=== PATIENT | female | born 1985 | race Two or more races ===

== ENCOUNTER 2021-09-05 19:06 | Emergency (ER) | payer SELFPAY ==
[~2021-09-05] VITALS: Ht 160 cm; Wt 70.0 kg
[2021-09-05] MEDS ORDERED: NEOM28OI TP (19:29)
--- NOTE | 2021-09-05 19:30 | PHYS DOC ---
General Adult EDM: Chief Complaint: DEPRESSION HPI: HPI: Patient is a 35 year old female who presents with here from [facility] which she is being treated for depression and she made a superficial cut on her left wrist. The monitor here to have it checked out. She states it just genao. She did a couple days ago. She does need a tetanus shot. Rates her pain a 3 out of 10. Denies numbness or tingling, focal weakness, SI, HI, hallucinations. (MINO LEES CHIEF I DISPATCHER) Review of Systems: Review of Systems: Constitutional: Denies fever or chills. [] Eyes: Denies change in visual acuity. [] HENT: Denies nasal congestion or sore throat. [] Respiratory: Denies cough or shortness of breath. [] Cardiovascular: Denies chest pain or edema. [] GI: Denies abdominal pain, nausea, vomiting, bloody stools or diarrhea. [] : Denies dysuria. [] Musculoskeletal: Denies back pain or joint pain. [] Integument: Denies rash. +left wrist superficial cut[] Neurologic: Denies headache, focal weakness or sensory changes. [] Endocrine: Denies polyuria or polydipsia. [] Lymphatic: Denies swollen glands. [] Psychiatric: Denies depression or anxiety. [] (MINO LEES CHIEF I DISPATCHER) Heart Score: C/O Chest Pain: No (MINO LEES CHIEF I DISPATCHER) Physical Exam: PE: Constitutional: Well developed, well nourished, no acute distress, non-toxic appearance. [] HENT: Normocephalic, atraumatic, bilateral external ears normal, oropharynx moist, no oral exudates, nose normal. [] Eyes: PERRLA, EOMI, conjunctiva normal, no discharge. [] Neck: Normal range of motion, no tenderness, supple, no stridor. [] Cardiovascular:Heart rate regular rhythm, no murmur [] Lungs & Thorax: Bilateral breath sounds clear to auscultation [] Abdomen: Bowel sounds normal, soft, no tenderness, no masses, no pulsatile mas ses. [] Skin: Warm, dry, no erythema, no rash. Left wrist superficial cut across the wrist.[] Back: No tenderness, no CVA tenderness. [] Extremities: No tenderness, no cyanosis, no clubbing, ROM intact, no edema. [] Neurologic: Alert and oriented X 3, normal motor function, normal sensory functi on, no focal deficits noted. [] Psychologic: Affect normal, judgement normal, mood normal. [] (MINO LEES APRN) EKG: EKG: [] (MINO LEES APRN) Radiology/Procedures: Radiology/Procedures: [] (MINO LEES APRN) Course & Med Decision Making: Course & Med Decision Making Pertinent Labs and Imaging studies reviewed. (See chart for details) See HPI. Alert and oriented x4. Ambulatory with steady gait. Speaks in full clear sentences. Left wrist horizontal very superficial laceration. Edges approximated. Very little depth. No bleeding. No redness or signs of infection. No drainage. Radial pulse strong are present. Cap refill less than 2 seconds. No swelling. Patient is given a tetanus shot and antibiotic ointment is placed. Sammy from [facility] is contacted by myself and he is coming to see patient. 2049: Patient is signed out to [facility] [] (MINO LEES APRN) Course & Med Decision Making Patient was evaluated by Sammy from [facility] team. Will be discharged back to [facility]. (HARPER GONZALEZ APRN) Lashaun Disclaimer: Lashaun Disclaimer: This electronic medical record was generated, in whole or in part, using a voice recognition dictation system. (MINO LEES APRN) Departure Departure Impression: Primary Impression: Superficial laceration Additional Impression: Self-cutting of wrist Disposition: HOME / SELF CARE / HOMELESS Condition: STABLE Patient Instructions: Depression, Adult, Laceration Care, Adult, Self- Destructive Behavior Additional Instructions: Keep area clean and covered. Use antibiotic ointment. Watch for signs infection such as redness, drainage, swelling, increased pain. If you have signs of infection return to the emergency room. Scripts Neomycn/Baci Zn/Pmyx Bs/Pramox (ANTIBIOTIC + PAIN RELIEF OINT) 28 Gm Oint...g. 28 GM TP TID for 5 Days, #1 MISC Prov: MINO LEES APRN 09/05/21 MINO LEES APRN September 05, 2021 19:30 HARPER GONZALEZ APRN September 05, 2021 21:27
[2021-09-05] MEDS ORDERED: DIPHTH,PERTUSS(ACELL),TET TOX 0.5 ML DISP.SYRIN. VAX IM ONE (20:15)
[2021-09-05] MEDS ORDERED: NEOMY/BACITR/POLYMYXIN OINT PACKET. TP ONE (20:15)
[2021-09-05 21:35] VITALS: BP 115/68
== END 2021-09-05 21:37 | disposition home or self-care (01) ==
LOC: ER 19:06
DX: S61.512A Laceration without foreign body of left wrist, initial encounter (principal); Y28.8XXA Contact with other sharp object, undetermined intent, initial encounter; Y93.89 Activity, other specified; Y92.89 Other specified places as the place of occurrence of the external cause; Y99.8 Other external cause status
CPT/HCPCS: 90471; 90715; 99283-25